=== PATIENT | male | born 1960 | race Caucasian/White ===

== ENCOUNTER → 2018-08-15 13:08 | Day surgery (SDC) | payer OTHER ==
--- NOTE | 2018-08-09 18:19 | HP ---
CC: Dr. Matthews; Dr. Estuardo Muñiz; Dr. Jun Hu * ADMITTING HISTORY AND PHYSICAL: DATE OF ADMISSION: 08/15/18 ADMITTING DIAGNOSIS: Right renal calculus. PLANNED PROCEDURE: Right stent insertion and shockwave lithotripsy of right renal calculus. SURGEON: Dr. Hu. HISTORY OF PRESENT ILLNESS: Manuelito Gomes is a 58-year-old gentleman who has had episodic right flank pain for several months and was noted to have a 1 cm calculus at the area of the right urethropelvic junction. He is now being brought in for management of the same. PAST MEDICAL HISTORY: Significant for: 1. Diabetes mellitus. 2. Hypertension. 3. Gout. 4. History of kidney stone. PAST SURGICAL HISTORY: Significant for surgery for a facial injury. MEDICATIONS ON ADMISSION: 1. Januvia 100 mg daily. 2. Corgard 20 mg daily. 3. Glucotrol XL 10 mg daily. 4. Omeprazole 20 mg daily. 5. Metformin 500 mg twice a day. 6. Norvasc 10 mg daily. 7. Pravastatin 20 mg daily. 8. Cozaar 50 mg twice a day. 9. Indomethacin p.r.n. 10. Allopurinol 300 mg daily. 11. Tramadol 100 mg p.r.n. daily. ALLERGIES: No known drug allergies. SMOKING HISTORY: He is a nonsmoker. REVIEW OF SYSTEMS: He denies any chest pain or shortness of breath. He had a nuclear stress test done in May 2018 and it was reported as a normal cardiac exercise nuclear stress test with no evidence of ischemia. PHYSICAL EXAMINATION GENERAL: Reveals a pleasant overweight gentleman. VITAL SIGNS: Blood pressure is 140/88, pulse 72 per minute, oxygen saturation 98% on room air. LUNGS: Clear bilaterally. CARDIOVASCULAR: Regular rate and rhythm. S1, S2. ABDOMEN: Soft with mild right flank tenderness. IMPRESSION: A 58-year-old diabetic with 1 cm calculus at the right ureteropelvic junction. PLAN/RECOMMENDATIONS: Planned procedure is right stent insertion and shockwave lithotripsy of right renal calculus. [id number] #: [id number] MTDD
[~2018-08-15 13:08] MED LIST: Buffered Lidocaine 1% SYRIN* 1 ML/SYRINGE INTRADERM ONE; Buffered Lidocaine 1% SYRIN* 1 ML/SYRINGE ONE; DiMENhydriNATE IV* 50 MG/ML VIAL IV PUSH PRN; EPHEDrine (Pressors)* 50 MG/ML VIAL ONE; Famotidine IV* 10 MG/ML 2 ML (20 mg) IV ONE; Famotidine IV* 10 MG/ML 2 ML (20 mg) ONE; Lactated Ringers 1000 ML Bag* 1,000 ML IV SCH; Lidocaine 2% PF * 5 ML VIAL ONE; Metoclopramide IV* 5 MG/ML 2 ML VIAL IV SLOW PU ONE; Metoclopramide IV* 5 MG/ML 2 ML VIAL ONE; Midazolam* 1 MG/ML 2 ML VIAL (2 MG) ONE; Nadolol TAB* 40 MG PO ONE; Naloxone* 0.4 MG/ML 1 ML VIAL IV PRN; Ondansetron INJ* 2 MG/ML VIAL ONE; Propofol* 10 MG/ML 20 ML BTL ONE; Tamsulosin CAP* 0.4 MG ONE; cefTRIAXone(*) 2 GM ADDV.VIAL IVPB ONE; fentaNYL* 50 MCG/ML 2 ML VIAL (100 MCG VIAL) IV PRN; fentaNYL* 50 MCG/ML 2 ML VIAL (100 MCG VIAL) ONE
[2018-08-15 18:06] VITALS: BP 160/85
--- NOTE | 2018-08-15 23:40 | OP ---
CC: Dr. Saman Matthews * DATE OF OPERATION: 08/15/18 - SDS DATE OF : 60 SURGEON: Jun Hu MD ANESTHESIOLOGIST: Dr. Garcia. ANESTHESIA: General. PRE-OP DIAGNOSIS: Right renal calculus. POST-OP DIAGNOSIS: Right renal calculus. OPERATIVE PROCEDURE: 1. Shockwave lithotripsy, right renal calculus. 2. Cystoscopy, right retrograde, and right stent insertion. INDICATIONS: Manuelito Gomes Jr. is a 58-year-old gentleman who was evaluated for an approximately 1-cm calculus in the right renal pelvis. COMPLICATIONS: None. POSTOPERATIVE CONDITION: Stable. STENT USED: 6-[place] stent, right ureter. DESCRIPTION OF PROCEDURE: After induction of general anesthesia, the patient was placed on the lithotripsy table in the supine position. The calculus was identified and was localized using fluoroscopy. Shockwave lithotripsy was commenced at a rate of 90 shocks per minute. After the initial 300 shocks, there was a pause in lithotripsy to minimize any potential trauma to the kidney. Lithotripsy was then resumed and intermittent fluoroscopy revealed good localization and fragmentation. The patient was placed in dorsal lithotomy position and cystoscopy was performed. A mild stricture was noted in the proximal bulbar urethra. The bladder neck was moderately elevated secondary to median lobe enlargement and the bladder was examined. A tiny bladder calculus was noted which was irrigated out. A right retrograde pyelogram revealed mild fullness of the right collecting system and a 6- [place] stent was introduced and positioned under fluoroscopy with good proximal and distal positioning obtained. The patient tolerated the procedure satisfactorily and was transferred back to the recovery area in stable condition. [id number] #: [id number] MTDD
== END | disposition home or self-care (01) ==
LOC: OR 13:08
PROVIDERS: ATTEND Urology
DX: N20.0 Calculus of kidney (principal); E11.9 Type 2 diabetes mellitus without complications; Z79.84 Long term (current) use of oral hypoglycemic drugs; I10 Essential (primary) hypertension; M10.9 Gout, unspecified; Z68.43 Body mass index [BMI] 50.0-59.9, adult; G47.33 Obstructive sleep apnea (adult) (pediatric); M19.90 Unspecified osteoarthritis, unspecified site
CPT/HCPCS: 74018; A9270-GY; C1876; J0696; J2250; J2405; J2704; J2765; J3010

== ENCOUNTER 2024-06-05 05:40 | Observation (INO) ==
[~2024-06-05 05:40] MED LIST changes: -Buffered Lidocaine 1% SYRIN* 1 ML/SYRINGE INTRADERM ONE; -Buffered Lidocaine 1% SYRIN* 1 ML/SYRINGE ONE; -DiMENhydriNATE IV* 50 MG/ML VIAL IV PUSH PRN; -EPHEDrine (Pressors)* 50 MG/ML VIAL ONE; -Famotidine IV* 10 MG/ML 2 ML (20 mg) IV ONE; -Famotidine IV* 10 MG/ML 2 ML (20 mg) ONE; -Lactated Ringers 1000 ML Bag* 1,000 ML IV SCH; +Lidocaine 1% w EPI 1:100,000 MDV 20 ML VIAL ONE; -Lidocaine 2% PF * 5 ML VIAL ONE; -Metoclopramide IV* 5 MG/ML 2 ML VIAL IV SLOW PU ONE; -Metoclopramide IV* 5 MG/ML 2 ML VIAL ONE; -Midazolam* 1 MG/ML 2 ML VIAL (2 MG) ONE; +NS 0.45% 1000 ml BAG 1,000 ML IV SCH; -Nadolol TAB* 40 MG PO ONE; +Naloxone 0.4 mg VIAL 0.4 mg/ml 1 ml VIAL IV PRN; -Naloxone* 0.4 MG/ML 1 ML VIAL IV PRN; +Ondansetron 4 mg VIAL 2 MG/ML 2 ml VIAL IV PRN; -Ondansetron INJ* 2 MG/ML VIAL ONE; -Propofol* 10 MG/ML 20 ML BTL ONE; -Tamsulosin CAP* 0.4 MG ONE; +Vancomycin 1,000 MG VIAL ONE; -cefTRIAXone(*) 2 GM ADDV.VIAL IVPB ONE; +fentaNYL 100 mcg/2 ml 50 MCG/ML VIAL IV PRN; -fentaNYL* 50 MCG/ML 2 ML VIAL (100 MCG VIAL) IV PRN; -fentaNYL* 50 MCG/ML 2 ML VIAL (100 MCG VIAL) ONE
[2024-06-05] MEDS ORDERED: Tranexamic Acid 1 GM/100ML BAG 2,000 MG/200 ML BAG IV ONE (06:06)
[2024-06-05 06:23] LABS: Rapid COVID-19 Molecular Undetected (Undetected)
[2024-06-05] MEDS ORDERED: ROPIVACAINE 5 MG/ML 30 ML BTL (0.5%) ONE (06:38)
[2024-06-05] MEDS ORDERED: Midazolam 5 mg/5 ml VIAL 1 mg/ml 5 ml VIAL (5 mg) ONE (06:38)
[2024-06-05] MEDS ORDERED: fentaNYL 100 mcg/2 ml 50 MCG/ML VIAL ONE ×2 (06:38→07:12)
[2024-06-05] MEDS ORDERED: ceFAZolin 1 GM in Dextrose 1 GM/50 ML BAG ONE (06:45)
[2024-06-05] MEDS ORDERED: ceFAZolin 2 GM PREMIX 2 GM/50 ML BAG ONE (06:45)
[2024-06-05] MEDS ORDERED: Lidocaine 1% w EPI 1:100,000 MDV 20 ML VIAL ONE (06:57)
[2024-06-05] MEDS ORDERED: Vancomycin 1,000 MG VIAL ONE (06:57)
[2024-06-05] MEDS: Lactated Ringers 1000 ml BAG 1,000 ML IV SCH ×2 (06:59→14:10)
[2024-06-05] MEDS: Buffered Lidocaine 1% SYRIN 1 ml INTRADERM ONE (06:59)
[2024-06-05] MEDS ORDERED: Dexamethasone IV 4 MG/ML VIAL 1 ml VIAL ONE (07:12)
[2024-06-05] MEDS ORDERED: Ondansetron 4 mg VIAL 2 MG/ML 2 ml VIAL ONE (07:12)
[2024-06-05] MEDS ORDERED: Propofol 10 MG/ML 20 ML BTL ONE ×2 (07:12→07:13)
[2024-06-05] MEDS ORDERED: Lidocaine 2% PF 5 ML VIAL ONE (07:12)
[2024-06-05] MEDS ORDERED: Phenylephrine IV 10 MG/ML 1 ml VIAL ONE (07:13)
[2024-06-05] MEDS ORDERED: Rocuronium 50 mg VIAL 10 mg/ml 5 ml VIAL (50 mg) ONE (07:55)
[2024-06-05] MEDS ORDERED: KETAMINE HCL 10 MG/ML 20 ml VIAL (200 MG) ONE (08:13)
[2024-06-05] MEDS ORDERED: HYDROmorphone 0.5 MG/0.5 ML SYRINGE ONE (08:17)
[2024-06-05] MEDS ORDERED: Calcium Carb (TUMS) 500 mg CHEW TAB PO PRN (10:45)
[2024-06-05] MEDS ORDERED: Magnesium Hydroxide LIQ 30 ML UDC PO PRN (10:45)
[2024-06-05] MEDS ORDERED: Lactulose 30 ml UDC PO PRN (10:45)
[2024-06-05] MEDS ORDERED: Ondansetron 4 mg VIAL 2 MG/ML 2 ml VIAL IV PRN (10:45)
[2024-06-05] MEDS ORDERED: Ondansetron ODT 4 mg TAB 4 MG TAB PO PRN (10:45)
[2024-06-05] MEDS ORDERED: Morphine 2 MG/ML SYRINGE IV PRN (10:45)
[2024-06-05] MEDS: Acetaminophen IV 1 GM/100ML 1,000 MG/100 ML BAG IV ONE (14:20)
[2024-06-05] MEDS: ceFAZolin *3* GM in NS PREMIX 3 GM/100 ML BAG IV SCH (15:57)
[2024-06-05] MEDS: CMCS: Pravastatin 20 mg TAB (NF) PO SCH (18:42)
[2024-06-05] MEDS: Magnesium Hydroxide LIQ 30 ML UDC PO SCH (21:28)
[2024-06-06 06:22] LABS: Hematocrit 31.2 % (38-53); Hemoglobin 10.8 g/dL (13.2-16.3); Mean Platelet Volume 9.2 fL (7.5-11.2); Platelet Count 209 10^3/uL (150-450)
[2024-06-06 06:28] LABS: Calcium 8.5 mg/dL (8.6-10.3); Creatinine, Serum 0.79 mg/dL (0.67-1.17); Potassium 3.4 mmol/L (3.5-5.0); eGFR CKD-EPI 99.2 (>60)
[2024-06-06] MEDS: Potassium Chlor 20 meq TAB.ER PO ONE (08:10)
[2024-06-06] MEDS: Aspirin EC 81 mg TAB.EC (enteric coated) PO SCH (08:12)
[2024-06-06] MEDS: Vitamin THERAPEUTIC TAB PO SCH (08:14)
[2024-06-06] MEDS ORDERED: COVID VAC 24-25 (12+) (Moderna) Syringe 0.5 mL IM ONE (10:00)
[2024-06-06 11:10] VITALS: BP 115/67
[2024-06-06] MEDS: COVID VAC 24-25 (12+) (Moderna) Syringe 0.5 mL IM ONE (12:48)
== END 2024-06-06 14:32 | disposition home or self-care (01) ==
LOC: SSU 05:40 → OR 05:40
PROVIDERS: ADMIT Orthopaedic Surgery; ATTEND Orthopaedic Surgery